=== PATIENT | male | born 1980 | race Caucasian/White ===

== ENCOUNTER → 2017-08-07 | Outpatient (CLI) | payer SELFPAY | LOC: RAD 11:35 | DX: M25.552 Pain in left hip (principal); M25.562 Pain in left knee; V89.2XXA Person injured in unspecified motor-vehicle accident, traffic, initial encounter ==

== ENCOUNTER → 2018-12-19 | Outpatient (CLI) | payer SELFPAY | LOC: RAD 12:43 | DX: S82.55XA Nondisplaced fracture of medial malleolus of left tibia, initial encounter for closed fracture (principal) ==